=== PATIENT | female | born 1980 | race American Indian/Alaskan Native ===

== ENCOUNTER 2017-01-07 17:59 | Emergency (ER) | payer BC, MEDICAID ==
--- NOTE | 2017-01-07 19:20 | EDM.PDOC ---
[id number]: STOMACH PAIN Time Seen by Provider: 01/07/17 19:00 Source of Information: Reports: Patient History Limitations: Reports: No Limitations - History of Present Illness INITIAL COMMENTS - FREE TEXT/NARRATIVE: 28-year-old female with chronic recurring abdominal pain has had increasing sharp stabbing pain down the center of her abdomen over the past 2 days. Some mild dysuria and increased urinary frequency, she is concerned she has a history of "diverticulosis". She also had a hernia repair last February for an umbilical hernia. She's had diarrhea for the past 2-3 days. No significant nausea or vomiting, she claims she's had a fever. She actually looks very comfortable and is moving well. Onset: Gradual (Over the past several days) Location: Reports: Abdomen Quality: Reports: Burning, Sharp Severity: Moderate Associated Symptoms: Reports: Fever/Chills. Denies: Loss of Appetite, Nausea/ Vomiting, Shortness of Breath - Related Data Allergies Allergy/AdvReac Type Severity Reaction Status Date / Time Iodinated Contrast- Oral and Allergy Mild Hives Verified 01/07/17 18:46 IV Dye [Iodinated Contrast Media - Oral and] latex Allergy Rash Verified 01/07/17 18:46 metformin Allergy Other Verified 01/07/17 18:46 codeine AdvReac Nausea Verified 01/07/17 18:46 Home Meds: Home Meds Cetirizine [ZyrTEC] 10 mg PO DAILY 11/13/14 [History] Fluticasone Propionate [Flonase] 2 spray NS DAILY 11/13/14 [History] Albuterol [Proventil HFA] 2 puff IN QID PRN 02/27/16 [History] Lactobacillus Acidophilus [Probiotic] 1 each PO DAILY 02/27/16 [History] Past Medical History HEENT History: Reports: Allergic Rhinitis, Impaired Vision Respiratory History: Reports: Other (See Below) Other Respiratory History: states uses inhalers are to help with breathing during allergy season Gastrointestinal History: Reports: Diverticulosis 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: , Other (See Below) Other OB/BYN History: "doesn't have mensies at all, only some occasional spotting Musculoskeletal History: Reports: Other (See Below) Other Musculoskeletal History: tendenitis, Neurological History: Reports: Concussion Psychiatric History: Reports: Depression, Panic Attack Endocrine/Metabolic History: Reports: Obesity/BMI 30+ Dermatologic History: Reports: Other (See Below) Other Dermatologic History: rashes from any of multiple allergies - Infectious Disease History Infectious Disease History: Reports: Chicken Pox - Past Surgical History GI Surgical History: Reports: Colonoscopy Female Surgical History: Reports: Tubal Ligation Musculoskeletal Surgical History: Reports: Carpal Tunnel Social & Family History - Tobacco Use Smoking Status *Q: Current Every Day Smoker Years of Tobacco use: 20 Packs/Tins Daily: 0.5 Used Tobacco, but Quit: No Second Hand Smoke Exposure: Yes - Alcohol Use Days Per Week of Alcohol Use: 0 - Recreational Drug Use Recreational Drug Use: No ED ROS GENERAL - Review of Systems Review Of Systems: See Below (social was wrong with her) Constitutional: Reports: Fever. Denies: Chills HEENT: Reports: No Symptoms Respiratory: Denies: Shortness of Breath Cardiovascular: Denies: Chest Pain GI/Abdominal: Reports: Abdominal Pain, Diarrhea. Denies: Melena, Nausea Skin: Reports: No Symptoms Psychiatric: Reports: No Symptoms ED EXAM, GI/ABD - Physical Exam Exam: See Below (With that is) Exam Limited By: No Limitations General Appearance: Alert, No Apparent Distress (Consider poisonous stool) Eyes: Bilateral: Normal Appearance (No jaundice) Respiratory/Chest: No Respiratory Distress, Lungs Clear Cardiovascular: Regular Rate, Rhythm GI/Abdominal Exam: Soft, Tender (Tenderness is mostly along the left lateral abdomen and lower quadrant) Neurological: Alert, Oriented Psychiatric: Normal Affect, Normal Mood Skin Exam: Warm, Dry Course - Vital Signs Last Recorded V/S: Last Vital Signs Temp 96.9 F 01/07/17 18:51 Pulse 58 L 01/07/17 22:07 Resp 14 01/07/17 20:43 BP 125/85 01/07/17 22:07 Pulse Ox 98 01/07/17 22:07 - Orders/Labs/Meds Orders: Active Orders 24 hr Category Date Time Status Abdomen Pelvis wo Cont [CT] Stat Exams 01/07/17 21:00 Taken CULTURE URINE [RM] Stat Lab 01/07/17 22:21 Received Labs: Laboratory Tests 01/07/17 01/07/17 01/07/17 Range/Units 19:25 19:25 20:06 WBC 14.3 H (4.5-11.0) K/uL RBC 4.97 (3.30-5.50) M/uL Hgb 14.9 (12.0-15.0) g/dL Hct 44.3 (36.0-48.0) % MCV 89 (80-98) fL MCH 30 (27-31) pg MCHC 34 (32-36) % Plt Count 420 H (150-400) K/uL Neut % (Auto) 63 (36-66) % Lymph % (Auto) 30 (24-44) % Stevens % (Auto) 5 (2-6) % Eos % (Auto) 2 (2-4) % Baso % (Auto) 1 (0-1) % Sodium 139 L (140-148) mmol/L Potassium 3.8 (3.6-5.2) mmol/L Chloride 104 (100-108) mmol/L Carbon Dioxide 27 (21-32) mmol/L Anion Gap 11.8 (5.0-14.0) mmol/L BUN 12 (7-18) mg/dL Creatinine 1.2 H (0.6-1.0) mg/dL Est Cr Clr Drug Dosing 66.43 mL/min Estimated GFR (MDRD) 50 L (>60) Glucose 125 H (74-106) mg/dL Calcium 8.3 L (8.5-10.1) mg/dL Urine Color Yellow Urine Appearance Slightly cloudy Urine pH 6.0 (4.5-8.0) Ur Specific [place] 1.020 (1.008-1.030) Urine Protein Negative (NEGATIVE) mg/dL Urine Glucose (UA) Normal (NEGATIVE) mg/dL Urine Ketones Negative (NEGATIVE) mg/dL Urine Occult Blood Trace (NEGATIVE) Urine Nitrite Negative (NEGATIVE) Urine Bilirubin Negative (NEGATIVE) Urine Urobilinogen 1 (NORMAL) mg/dL Ur Leukocyte Esterase Negative (NEGATIVE) Urine RBC 5-10 H (0-5) Urine WBC 0-5 (0-5) Ur Epithelial Cells Moderate Amorphous Sediment Not seen Urine Bacteria Many Urine Mucus Few - Re-Assessments/Exams Free Text/Narrative Re-Assessment/Exam: 01/07/17 19:20 UA was obtained, as well as a CBC and BMP. Her previous CT scan in July was reviewed and was normal other than a questionable right adnexal abnormality. This was discussed with the patient. 01/07/17 21:01 CBC and BMP revealed a white count of 14,300. Urine had some bacteria but no significant inflammatory response. We will repeat the abdomen and pelvis CT scan without IV contrast. 01/07/17 22:29 CT scan revealed an enlarging right adnexal mass. A copy of the CT report was given to the patient and she has an appointment with Malena Kwok next week for OB/ REGISTER REPAIRER complaints. I'm going to asked her to contact Malena Kwok early next week to see if she can get a pelvic ultrasound arranged prior to her appointment. She is likely going to need an INSIDE SALES ASSISTANT consultation. We are also going to run a culture of the urine and we'll contact her if it reveals anything that needs treatment. Departure - Departure Time of Disposition: 23:13 Disposition: Home, Self-Care 01 Condition: Good Clinical Impression: Adnexal mass Abdominal pain Qualifiers: Abdominal location: lower abdomen, unspecified Qualified Code(s): R10.30 - Lower abdominal pain, unspecified - Discharge Information Instructions: Abdominal Pain, Adult Referrals: Chris Thomason PA-C [Primary Care Provider] - Forms: ED Department Discharge Care Plan Goals: Continue your current activity, return anytime if you're worsening. Call your primary provider to discuss obtaining an ultrasound of the pelvis prior to your appointment on Monday. - My Orders Last 24 Hours: My Active Orders 01/07/17 21:00 Abdomen Pelvis wo Cont [CT] Stat 01/07/17 22:21 CULTURE URINE [RM] Stat - Assessment/Plan Last 24 Hours: My Active Orders 01/07/17 21:00 Abdomen Pelvis wo Cont [CT] Stat 01/07/17 22:21 CULTURE URINE [RM] Stat
[2017-01-07 22:07] VITALS: BP 125/85
== END 2017-01-07 23:14 | disposition home or self-care (01) ==
LOC: JP.ED 17:59
DX: N83.8 Other noninflammatory disorders of ovary, fallopian tube and broad ligament (principal); R10.30 Lower abdominal pain, unspecified; F32.9 Major depressive disorder, single episode, unspecified; F41.0 Panic disorder [episodic paroxysmal anxiety]; E66.9 Obesity, unspecified; Z68.42 Body mass index [BMI] 45.0-49.9, adult; Z79.899 Other long term (current) drug therapy; Z98.51 Tubal ligation status; F17.210 Nicotine dependence, cigarettes, uncomplicated; Z88.5 Allergy status to narcotic agent; Z88.8 Allergy status to other drugs, medicaments and biological substances; Z91.040 Latex allergy status; Z91.041 Radiographic dye allergy status
CPT/HCPCS: 36415; 74176; 80048; 81001; 85025; 87086; 99284-25

== ENCOUNTER 2017-02-21 12:07 | Emergency (ER) | payer BC, MEDICAID ==
[2017-02-21 12:38] VITALS: BP 143/103
--- NOTE | 2017-02-21 13:12 | EDM.PDOC ---
ED HPI GENERAL MEDICAL PROBLEM - General Chief Complaint: General Stated Complaint: HAD SURG FRI/LEAKING/ISSUES Time Seen by Provider: 02/21/17 12:54 Source of Information: Reports: Patient, Family, RN Notes Reviewed History Limitations: Reports: No Limitations - History of Present Illness INITIAL COMMENTS - FREE TEXT/NARRATIVE: 36-year-old female presents emergency department today concerned of discharge from her surgical wound, she states this started this morning she describes a large amount of fluid leaking from her wound she denies any other symptoms at this time she is postop day 4 from a vaginal hysterectomy - Related Data Allergies Allergy/AdvReac Type Severity Reaction Status Date / Time Iodinated Contrast- Oral and Allergy Mild Hives Verified 01/07/17 18:46 IV Dye [Iodinated Contrast Media - Oral and] acetaminophen [From [place]] Allergy Pain Verified 02/21/17 12:39 hydrocodone [From [place]] Allergy Pain Verified 02/21/17 12:39 latex Allergy Rash Verified 01/07/17 18:46 metformin Allergy Other Verified 01/07/17 18:46 codeine AdvReac Nausea Verified 01/07/17 18:46 Home Meds: Home Meds Cetirizine [ZyrTEC] 10 mg PO DAILY 11/13/14 [History] Fluticasone Propionate [Flonase] 2 spray NS DAILY 11/13/14 [History] Albuterol [Proventil HFA] 2 puff IN QID PRN 02/27/16 [History] Lactobacillus Acidophilus [Probiotic] 1 each PO DAILY 02/27/16 [History] Past Medical History HEENT History: Reports: Allergic Rhinitis, Impaired Vision Respiratory History: Reports: Other (See Below) Other Respiratory History: states uses inhalers are to help with breathing during allergy season Gastrointestinal History: Reports: Diverticulosis 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: , Other (See Below) Other OB/BYN History: "doesn't have mensies at all, only some occasional spotting Musculoskeletal History: Reports: Other (See Below) Other Musculoskeletal History: tendenitis, Neurological History: Reports: Concussion Psychiatric History: Reports: Depression, Panic Attack Endocrine/Metabolic History: Reports: Obesity/BMI 30+ Oncologic (Cancer) History: Reports: Ovarian Dermatologic History: Reports: Other (See Below) Other Dermatologic History: rashes from any of multiple allergies - Infectious Disease History Infectious Disease History: Reports: Chicken Pox - Past Surgical History GI Surgical History: Reports: Colonoscopy Female Surgical History: Reports: Tubal Ligation Musculoskeletal Surgical History: Reports: Carpal Tunnel Other Oncologic Surgeries/Procedures: TOTAL HISTORYECTOMY AND MASS REMOVED. 03/05 Social & Family History - Tobacco Use Smoking Status *Q: Light Tobacco Smoker Years of Tobacco use: 20 Packs/Tins Daily: 0.5 Used Tobacco, but Quit: No Second Hand Smoke Exposure: Yes - Caffeine Use Caffeine Use: Reports: Coffee, Soda - Alcohol Use Days Per Week of Alcohol Use: 0 - Recreational Drug Use Recreational Drug Use: No ED ROS GENERAL - Review of Systems Review Of Systems: See Below Constitutional: Reports: No Symptoms HEENT: Reports: No Symptoms Respiratory: Reports: No Symptoms Cardiovascular: Reports: No Symptoms GI/Abdominal: Reports: No Symptoms : Reports: No Symptoms Musculoskeletal: Reports: No Symptoms Skin: Reports: Wound (Surgical wound leaking blood tinged fluid) Neurological: Reports: No Symptoms ED EXAM, GENERAL - Physical Exam Exam: See Below Exam Limited By: No Limitations General Appearance: Alert, WD/WN, No Apparent Distress GI/Abdominal: Soft, Non-Tender, Other (Surgical wounds are all clean dry intact except for the umbilicus one has blood-tinged serosanguineous fluid present a small amount noted) Course - Vital Signs Last Recorded V/S: Last Vital Signs Temp 97.5 F 02/21/17 12:38 Pulse 62 02/21/17 12:38 Resp 16 02/21/17 12:38 BP 143/103 H 02/21/17 12:38 Pulse Ox 97 02/21/17 12:38 Departure - Departure Time of Disposition: 13:11 Disposition: Home, Self-Care 01 Condition: Good Clinical Impression: Drainage from wound - Discharge Information Referrals: Chris Thomason PA-C [Primary Care Provider] - Additional Instructions: Continue using the pressure dressings, please establish contact with your surgeon for further treatment recommendations - Assessment/Plan Plan: Assessment Acuity = acute Site and laterality = surgical wound leaking Etiology = postop day for vaginal hysterectomy Manifestations = none Location of injury = Home Lab values = none Plan Discussed case with general surgeon employee relations consultant recommended pressing dressings however if leakage does continue greater in 24 hours probable need for surgical intervention recommended contacting surgery at the [facility] where the procedure was done for further treatment guidance, patient has contacted her surgeon however only spoke with nursing staff expected surgeon will return or call today Patient was in agreement with the plan all questions were answered, they were instructed to return to the emergency department or call for worsening symptoms. This note was dictated using [employer] voice recognition software please call with any questions.
== END 2017-02-21 13:24 | disposition home or self-care (01) ==
LOC: JP.ED 12:07
DX: N99.842 Postprocedural seroma of a genitourinary system organ or structure following a genitourinary system procedure (principal); F32.9 Major depressive disorder, single episode, unspecified; F41.9 Anxiety disorder, unspecified; F17.210 Nicotine dependence, cigarettes, uncomplicated; E66.9 Obesity, unspecified; Z68.42 Body mass index [BMI] 45.0-49.9, adult; Z85.43 Personal history of malignant neoplasm of ovary; Z98.51 Tubal ligation status; Z90.710 Acquired absence of both cervix and uterus; Z98.890 Other specified postprocedural states; Z79.899 Other long term (current) drug therapy; Z88.5 Allergy status to narcotic agent; Z88.8 Allergy status to other drugs, medicaments and biological substances; Z91.040 Latex allergy status; Z91.041 Radiographic dye allergy status
CPT/HCPCS: 99283

== ENCOUNTER 2018-09-04 07:19 | Emergency (ER) | payer BC, MEDICAID ==
[2018-09-04 07:46] VITALS: BP 133/80
--- NOTE | 2018-09-04 08:21 | EDM.PDOC ---
ED HPI GENERAL MEDICAL PROBLEM - General Chief Complaint: Fever Stated Complaint: FEVER,BODY ACHES Time Seen by Provider: 09/04/18 08:10 Source of Information: Reports: Patient, Family History Limitations: Reports: No Limitations - History of Present Illness INITIAL COMMENTS - FREE TEXT/NARRATIVE: 38-year-old female who is developed body aches, fever, sore throat and mild cold symptoms over the past 24 hours. Her son has had fevers and sore throat with cold symptoms for the past week, he had an extensive workup in the ER a few days ago with negative influenza and no appendicitis. He was improving but now he has a sore throat, she developed a sore throat yesterday and fever with mild runny nose and mild cough. No nausea or vomiting. She has significant generalized body aches. Onset: Sudden (Symptoms started fairly suddenly last evening) Associated Symptoms: Reports: Cough, Fever/Chills, Headaches (Symptoms started with a migraine headache that has improved). Denies: Confusion, Nausea/Vomiting , Shortness of Breath - Related Data Allergies Allergy/AdvReac Type Severity Reaction Status Date / Time Iodinated Contrast- Oral and Allergy Mild Hives Verified 01/07/17 18:46 IV Dye [Iodinated Contrast Media - Oral and] acetaminophen [From [place]] Allergy Pain Verified 02/21/17 12:39 hydrocodone [From [place]] Allergy Pain Verified 02/21/17 12:39 latex Allergy Rash Verified 01/07/17 18:46 metformin Allergy Other Verified 01/07/17 18:46 codeine AdvReac Nausea Verified 01/07/17 18:46 Home Meds: Home Meds Cetirizine [ZyrTEC] 10 mg PO DAILY 11/13/14 [History] Fluticasone Propionate [Flonase] 2 spray NS DAILY 11/13/14 [History] Albuterol [Proventil HFA] 2 puff IN QID PRN 02/27/16 [History] Lactobacillus Acidophilus [Probiotic] 1 each PO DAILY 02/27/16 [History] Levothyroxine [Synthroid] 50 mcg PO DAILY 09/04/18 [History] Venlafaxine HCl [Venlafaxine ER] 37.5 mg PO DAILY 09/04/18 [History] Past Medical History HEENT History: Reports: Allergic Rhinitis, Impaired Vision Respiratory History: Reports: Other (See Below) Other Respiratory History: states uses inhalers are to help with breathing during allergy season Gastrointestinal History: Reports: Diverticulosis 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: , 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 (See Below) 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: "doesn't have mensies at all, only some occasional spotting Musculoskeletal History: Reports: Other (See Below) Other Musculoskeletal History: tendenitis, Neurological History: Reports: Concussion Psychiatric History: Reports: Depression, Panic Attack Endocrine/Metabolic History: Reports: Obesity/BMI 30+ Oncologic (Cancer) History: Reports: Ovarian Dermatologic History: Reports: Other (See Below) Other Dermatologic History: rashes from any of multiple allergies - Infectious Disease History Infectious Disease History: Reports: Chicken Pox - Past Surgical History GI Surgical History: Reports: Colonoscopy Female Surgical History: Reports: Tubal Ligation Musculoskeletal Surgical History: Reports: Carpal Tunnel Other Oncologic Surgeries/Procedures: TOTAL HISTORYECTOMY AND MASS REMOVED. 03/05 Social & Family History - Tobacco Use Smoking Status *Q: Current Every Day Smoker Years of Tobacco use: 25 Packs/Tins Daily: 0.5 - Caffeine Use Caffeine Use: Reports: Coffee - Recreational Drug Use Recreational Drug Use: No ED ROS GENERAL - Review of Systems Review Of Systems: See Below Constitutional: Reports: Fever, Chills, Malaise HEENT: Reports: Throat Pain Respiratory: Reports: Cough. Denies: Shortness of Breath Cardiovascular: Denies: Chest Pain GI/Abdominal: Denies: Abdominal Pain, Nausea, Vomiting : Reports: No Symptoms Musculoskeletal: Reports: Muscle Pain (Hurts all over) Skin: Reports: No Symptoms. Denies: Rash Neurological: Reports: Headache ED EXAM, GENERAL - Physical Exam Exam: See Below Exam Limited By: No Limitations General Appearance: Alert, No Apparent Distress (Looks uncomfortable but not distressed) Eye Exam: Bilateral Eye: Normal Inspection Throat/Mouth: Other (Mild to moderate pharyngeal erythema) Head: Atraumatic Neck: Lymphadenopathy (R), Lymphadenopathy (L) Respiratory/Chest: No Respiratory Distress, Lungs Clear Cardiovascular: Regular Rate, Rhythm. No: Tachycardia Neurological: Alert, Oriented Psychiatric: Depressed Mood, Flat Affect Skin Exam: Warm, Dry Course - Vital Signs Last Recorded V/S: Last Vital Signs Temp 101.4 F H 09/04/18 07:54 Pulse 98 09/04/18 07:54 Resp 16 09/04/18 07:54 BP 133/80 09/04/18 07:54 Pulse Ox 97 09/04/18 07:54 - Re-Assessments/Exams Free Text/Narrative Re-Assessment/Exam: 09/04/18 08:20 A rapid strep was obtained from the patient and her son. If either is positive they will both be treated. 09/04/18 08:34 Strep was positive. Patient will be placed on amoxicillin 500 mg 3 times a day for 10 days. She can recheck in 3-4 days if not improving satisfactorily. Departure - Departure Time of Disposition: 08:45 Disposition: Home, Self-Care 01 Condition: Good Clinical Impression: Strep pharyngitis - Discharge Information Instructions: Strep Throat, [id number] Referrals: Yani Weber PA-C [Primary Care Provider] - Forms: ED Department Discharge Care Plan Goals: Take antibiotic 3 times a day for a minimum of 7 days. Rest, fluids, Tylenol and ibuprofen should be beneficial. Consider rechecking in 2-3 days if not improving.
== END 2018-09-04 08:45 | disposition home or self-care (01) ==
LOC: JP.ED 07:19
DX: J02.0 Streptococcal pharyngitis (principal); F32.9 Major depressive disorder, single episode, unspecified; F17.210 Nicotine dependence, cigarettes, uncomplicated; Z79.899 Other long term (current) drug therapy; Z91.041 Radiographic dye allergy status; Z91.040 Latex allergy status; Z88.5 Allergy status to narcotic agent; Z88.8 Allergy status to other drugs, medicaments and biological substances
CPT/HCPCS: 87430; 99283

== ENCOUNTER 2019-04-23 21:58 | Emergency (ER) | payer BC, MEDICAID ==
--- NOTE | 2019-04-23 22:33 | EDM.PDOC ---
ED HPI GENERAL MEDICAL PROBLEM - General Chief Complaint: Lower Extremity Injury/Pain Stated Complaint: SWOLLEN RIGHT KNEE Time Seen by Provider: 04/23/19 22:15 Source of Information: Reports: Patient, Old Records History Limitations: Reports: No Limitations - History of Present Illness INITIAL COMMENTS - FREE TEXT/NARRATIVE: 39 yo female here with R knee swelling and mild pain. Denies injury. Sx's for a couple days. Has not been seen for this before today. Took ibuprofen with only partial relief. 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 Right Knee Pain Score (Numeric/FACES): 4 - Related Data Allergies Allergy/AdvReac Type Severity Reaction Status Date / Time Iodinated Contrast Media Allergy Mild Hives Verified 01/07/17 18:46 [Iodinated Contrast Media - Oral and] hydrocodone [From [place]] Allergy Pain Verified 02/21/17 12:39 latex Allergy Rash Verified 01/07/17 18:46 metformin Allergy Other Verified 01/07/17 18:46 codeine AdvReac Nausea Verified 01/07/17 18:46 Home Meds: Home Meds Cetirizine [ZyrTEC] 10 mg PO DAILY 11/13/14 [History] Albuterol [Proventil HFA] 2 puff IN QID PRN 02/27/16 [History] Levothyroxine [Synthroid] 50 mcg PO DAILY 09/04/18 [History] Venlafaxine HCl [Venlafaxine ER] 75 mg PO DAILY 09/04/18 [History] Calcium Carbonate/Vitamin D3 [Calcium 600-D3 20Mcg(800 Unit)] 1 each PO DAILY [History] Montelukast [Singulair] 10 mg PO DAILY 04/23/19 [History] Vitamin B Complex with C [Super B Complex With C] 1 cap PO DAILY 04/23/19 [ History] Past Medical History HEENT History: Reports: Allergic Rhinitis, Impaired Vision Respiratory History: Reports: Other (See Below) Other Respiratory History: states uses inhalers are to help with breathing during allergy season Gastrointestinal History: Reports: Diverticulosis 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: , Other (See Below) 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 History: "doesn't have mensies at all, only some occasional spotting Musculoskeletal History: Reports: Other (See Below) Other Musculoskeletal History: tendenitis, Neurological History: Reports: Concussion Psychiatric History: Reports: Depression, Panic Attack Endocrine/Metabolic History: Reports: Obesity/BMI 30+ Oncologic (Cancer) History: Reports: Ovarian Dermatologic History: Reports: Other (See Below) Other Dermatologic History: rashes from any of multiple allergies - Infectious Disease History Infectious Disease History: Reports: Chicken Pox - Past Surgical History GI Surgical History: Reports: Colonoscopy Female Surgical History: Reports: Tubal Ligation Musculoskeletal Surgical History: Reports: Carpal Tunnel Other Oncologic Surgeries/Procedures: TOTAL HISTORYECTOMY AND MASS REMOVED. 03/05 Social & Family History - Caffeine Use Caffeine Use: Reports: Coffee Review of Systems - Review of Systems Review Of Systems: ROS reveals no pertinent complaints other than HPI. Constitutional: Reports: No Symptoms Musculoskeletal: Reports: Joint Pain (R knee), Joint Swelling (R knee) Skin: Reports: No Symptoms ED EXAM, GENERAL - Physical Exam Exam: See Below Exam Limited By: No Limitations General Appearance: Alert, WD/WN, No Apparent Distress Extremities: Pedal Edema (trace effusion R knee), Other (no joint line pain. No ligamentous laxity. Flexion/extension with foot internally rotated increases the pain to the posterior R knee. Ext rotation and flex/ext does not change her pain. ). No: Increased Warmth, Redness Neurological: Alert, Oriented, CN II-XII Intact, Normal Cognition, No Motor/ Sensory Deficits Skin Exam: Warm, Dry, Intact, Normal Color, No Rash Course - Vital Signs Text/Narrative:: 6 inch RADHA applied. Last Recorded V/S: Last Vital Signs Temp 35.1 C L 04/23/19 22:14 Pulse 68 04/23/19 22:14 Resp 16 04/23/19 22:14 BP 160/95 H 04/23/19 22:14 Pulse Ox 95 04/23/19 22:14 Departure - Departure Time of Disposition: 22:33 Disposition: Home, Self-Care 01 Condition: Good Clinical Impression: Acute meniscal tear of right knee Qualifiers: Encounter type: initial encounter Qualified Code(s): S83.206A - Unspecified tear of unspecified meniscus, current injury, right knee, initial encounter - Discharge Information *PRESCRIPTION DRUG MONITORING PROGRAM REVIEWED*: No *COPY OF PRESCRIPTION DRUG MONITORING REPORT IN PATIENT ZELDA: No Instructions: Meniscus Tear Referrals: Yani Weber PA-C [Primary Care Provider] - Additional Instructions: Relative rest. RADHA wrap with any weight bearing. Ibuprofen 600 mg every 6 hrs with food. Acetaminophen up to 1000 mg every 6 hrs for added relief. F/U with orthopedics as soon as possible.
[2019-04-23 23:14] VITALS: BP 160/95; PULSE 68
== END 2019-04-23 22:54 | disposition home or self-care (01) ==
LOC: JP.ED 21:58
DX: S83.206A Unspecified tear of unspecified meniscus, current injury, right knee, initial encounter (principal); E66.9 Obesity, unspecified; F32.9 Major depressive disorder, single episode, unspecified; Z68.41 Body mass index [BMI] 40.0-44.9, adult; Z79.899 Other long term (current) drug therapy; Z88.5 Allergy status to narcotic agent; Z88.8 Allergy status to other drugs, medicaments and biological substances; Z91.041 Radiographic dye allergy status; Z91.040 Latex allergy status; X58.XXXA Exposure to other specified factors, initial encounter
CPT/HCPCS: 99283

== ENCOUNTER 2021-12-29 08:54 | Emergency (ER) | payer MEDICAID ==
[2021-12-29 09:01] VITALS: PULSE 69
[2021-12-29 09:49] VITALS: BP 145/99
== END 2021-12-29 09:40 | disposition home or self-care (01) ==
LOC: JP.ED 08:54
DX: L29.9 Pruritus, unspecified (principal); T50.Z95A Adverse effect of other vaccines and biological substances, initial encounter; E66.9 Obesity, unspecified; Z68.42 Body mass index [BMI] 45.0-49.9, adult; Z91.041 Radiographic dye allergy status; Z88.5 Allergy status to narcotic agent; Z91.040 Latex allergy status; Z88.8 Allergy status to other drugs, medicaments and biological substances; Z79.899 Other long term (current) drug therapy
CPT/HCPCS: 99283

== ENCOUNTER 2022-06-14 20:54 | Emergency (ER) | payer MEDICAID ==
[2022-06-14 21:07] VITALS: BP 146/86; PULSE 90
== END 2022-06-14 21:57 | disposition home or self-care (01) ==
LOC: JP.ED 20:54
DX: J21.0 Acute bronchiolitis due to respiratory syncytial virus (principal); E66.9 Obesity, unspecified; Z68.41 Body mass index [BMI] 40.0-44.9, adult; Z91.041 Radiographic dye allergy status; Z91.040 Latex allergy status; Z88.5 Allergy status to narcotic agent; Z88.8 Allergy status to other drugs, medicaments and biological substances; Z79.899 Other long term (current) drug therapy
CPT/HCPCS: 36415; 71046; 85025; 86140; 99285

== ENCOUNTER 2023-12-04 06:48 | Day surgery (SDC) | payer MEDICAID ==
[2023-12-04] MEDS ORDERED: fentaNYL 50 MCG/ML SDV ONE (07:29)
[2023-12-04] MEDS ORDERED: Propofol 200 MG/20 ML SDV ONE ×2 (07:29→08:01)
[2023-12-04] MEDS ORDERED: Midazolam 1 MG/ML 2 ML SDV ONE (07:29)
[2023-12-04] MEDS: Dextrose 5%-Lactated Ringers 1,000 ML IV SCH (07:34)
[2023-12-04 09:17] VITALS: BP 136/92; PULSE 59
== END 2023-12-04 09:20 | disposition home or self-care (01) ==
LOC: JP.SDS 06:48
PROVIDERS: ATTEND Family Medicine
DX: D12.0 Benign neoplasm of cecum (principal); D12.3 Benign neoplasm of transverse colon; K57.30 Diverticulosis of large intestine without perforation or abscess without bleeding; K64.8 Other hemorrhoids; E11.9 Type 2 diabetes mellitus without complications; E03.9 Hypothyroidism, unspecified; Z79.899 Other long term (current) drug therapy; Z91.040 Latex allergy status; Z88.0 Allergy status to penicillin
CPT/HCPCS: 00811; 45380; J2250; J2704; J3010; J7121

== ENCOUNTER 2025-02-08 13:21 | Emergency (ER) | payer MEDICAID ==
[2025-02-08 14:05] VITALS: BP 142/88; PULSE 70
[2025-02-08 14:33] LABS: APPEARANCE,URINE CLEAR (CLEAR); GLUCOSE,URINE NEGATIVE (NEGATIVE); OCCULT BLOOD,URINE TRACE-INTACT (NEGATIVE)
[2025-02-08 14:43] LABS: SQUAMOUS EPITHELIAL CELLS,UR RARE /HPF; UROTHELIAL CELLS,URINE NOT SEEN /HPF
== END 2025-02-08 16:50 | disposition home or self-care (01) ==
LOC: EEVIPCON 13:21 → JP.ED 13:21
DX: R30.0 Dysuria (principal); E66.9 Obesity, unspecified; E11.9 Type 2 diabetes mellitus without complications; E03.9 Hypothyroidism, unspecified; F17.200 Nicotine dependence, unspecified, uncomplicated; Z88.0 Allergy status to penicillin; Z88.5 Allergy status to narcotic agent; Z88.7 Allergy status to serum and vaccine; Z88.8 Allergy status to other drugs, medicaments and biological substances; Z91.040 Latex allergy status; Z79.890 Hormone replacement therapy; Z79.899 Other long term (current) drug therapy; Z68.41 Body mass index [BMI] 40.0-44.9, adult
CPT/HCPCS: 74176; 81001; 81025; 99284